=== PATIENT | female | born 1990 | race Caucasian/White ===

== ENCOUNTER 2017-08-19 01:16 | Emergency (ER) | payer SELFPAY ==
[~2017-08-19] VITALS: Ht 157.5 cm; Wt 65.0 kg
[~2017-08-19 01:16] MED LIST: CONCCAP2 PO
[2017-08-19 01:20] VITALS: BP 110/63; PULSE 71; RESP 20; TEMP 98.2; O2SAT 99
[2017-08-19 02:55] LABS: BILIRUBIN, URINE NEG (NEG); BLOOD, URINE SMALL (NEG); GLUCOSE,URINE NEG (NEG); KETONE, URINE NEG (NEG); NITRITE,URINE NEG (NEG); SQUAMOUS EPITHELIAL CELL URINE 4 /hpf (0-5); URINE COLOR Straw (YELLW/STRAW); URINE LEUKOCYTE ESTERASE NEG (NEG)
--- NOTE | 2017-08-19 03:22 | PD ---
HPI Chief Complaint: Abdominal Pain Time Seen by Provider: 01:42 Travel History International Travel<30 days: No Contact w/Intl Traveler<30days: No Traveled to known affect area: No History of Present Illness HPI Patient is a 27-year-old female Occitan-speaking only who is coming in complaining of 1 week of bilateral flank pain that radiates down her gluteal areas feels like her legs follow sleep off and on for a week she had no trauma denies fall denies injury she is wondering if she could be she has not had abnormal period for over 3 months she did not check home but it is possible she said she could be no diarrhea no constipation no nausea no vomiting no fever just bilateral back pain flank pain radiating down the gluteal areas and the sciatic-like distribution she is not taking anything to make it better nothing makes it worse with sitting in a chair seems to exacerbate the numb feeling in her legs PFSH Past Medical History Hx Anticoagulant Therapy: No Cardiovascular Problems: No Chemotherapy: No Cerebrovascular Accident: No Diabetes: No Diminished Hearing: No Respiratory: No Immunizations Current: No Tetanus Vaccination: Unknown Influenza Vaccination: No ?: Unknown LMP: 3 MONTHS AGO Menopausal: No : 1 Para: 1 Past Surgical History Section: Yes Hysterectomy: No Social History Alcohol Use: No Tobacco Use: No Substance Use: No Allergies-Medications (Allergen,Severity, Reaction): Coded Allergies: amoxicillin (Unverified Allergy, Unknown, 08/19/17) Reported Meds & Prescriptions Reported Meds & Active Scripts Active Ibuprofen 600 Mg Tab 600 Mg PO Q6H PRN Physical Exam Narrative GENERAL: non toxic no distress SKIN: Warm and dry. HEAD: Atraumatic. Normocephalic. EYES: Pupils equal and round. No scleral icterus. No injection or drainage. ENT: No nasal bleeding or discharge. Mucous membranes pink and moist. NECK: Trachea midline. No JVD. CARDIOVASCULAR: Regular rate and rhythm. RESPIRATORY: No accessory muscle use. Clear to auscultation. Breath sounds equal bilaterally. GASTROINTESTINAL: Abdomen s periumbilical pain and bilateral flank pain mild MUSCULOSKELETAL: Extremities without clubbing, cyanosis, or edema. No obvious deformities. NEUROLOGICAL: Awake and alert. No obvious cranial nerve deficits. Motor grossly within normal limits. Five out of 5 muscle strength in the arms and legs. Normal speech. PSYCHIATRIC: Appropriate mood and affect; insight and judgment normal. Data Data Last Documented VS Vital Signs Date Time Temp Pulse Resp B/P (MAP) Pulse Ox O2 Delivery O2 Flow Rate FiO2 08/19/17 01:20 98.2 71 20 110/63 (79) 99 Orders Orders Urinalysis - C+S If Indicated (08/19/17 02:23) Ed Urine Pregnancytest Poc (08/19/17 02:23) Ketorolac Inj (Toradol Inj) (08/19/17 03:30) Ed Discharge Order (08/19/17 03:25) Labs Laboratory Tests Test 08/19/17 02:25 Urine Color Straw Urine Turbidity HAZY Urine pH 5.0 Urine Specific [place] 1.009 Urine Protein NEG mg/dL Urine Glucose (UA) NEG mg/dL Urine Ketones NEG mg/dL Urine Occult Blood SMALL Urine Nitrite NEG Urine Bilirubin NEG Urine Leukocyte Esterase NEG Urine RBC LESS THAN 1 /hpf Urine WBC 2 /hpf Urine Squamous Epithelial Cells 4 /hpf Microscopic Urinalysis Comment CULT NOT INDICATED MDM Medical Decision Making Medical Screen Exam Complete: Yes Emergency Medical Condition: Yes Medical Record Reviewed: Yes Differential Diagnosis pt reports muscle like pain that radiates around bilateral abdomen , worse with prolonged sitting and sciatica like distribution Narrative Course Toradol IM pt feels much better clinical exam indicate it is muscle spasms with sciatic like radiation , at this time no further work up indicated in Emergency room . Diagnosis Primary Impression: Back pain Qualified Codes: M54.42 - Lumbago with sciatica, left side; M54.41 - Lumbago with sciatica, right side Additional Impression: Sciatica Qualified Codes: M54.31 - Sciatica, right side; M54.32 - Sciatica, left side Patient Instructions: Back Pain (ED), General Instructions Scripts Ibuprofen (Ibuprofen) 600 Mg Tab 600 MG PO Q6H Y for Pain/Inflammation, #20 TAB 0 Refills Prov: Gee Eastman MD 08/19/17 Disposition: 01 DISCHARGE HOME Condition: Good Gee Eastman MD Aug 19, 2017 03:22
[2017-08-19] MEDS ORDERED: IBUP-232 PO (03:27)
[2017-08-19] MEDS ORDERED: KETOROLAC TROMETHAMINE 60 MG/2 ML (IM) VIAL IM ONE (03:30)
== END 2017-08-19 03:41 | disposition home or self-care (01) ==
LOC: NEPE 01:16
DX: M54.41 Lumbago with sciatica, right side (principal); M54.42 Lumbago with sciatica, left side
CPT/HCPCS: 81001; 84703; 96372; 99283; J1885